=== PATIENT | male | born 1975 | race Caucasian/White ===

== ENCOUNTER 2024-09-12 10:57 | Emergency (ER) | payer BC, SELFPAY ==
[2024-09-12 11:32] VITALS: BP 163/109
--- NOTE | 2024-09-12 12:49 | ED.GENMED ---
History of Present Illness
General
Chief Complaint: Skin Surface Trauma
Source: patient
Exam Limitations: none
Time Seen by Provider: 09/12/24 12:37
Nursing documentation reviewed up to this point in time: agreed with
History of Present Illness
History of Present Illness:
49-year-old male with no chronic medical issues presents with a eng hematoma. He was working on a 2 x 4 struck him in the right eng. He says that it swelled up rather quickly and he developed a hematoma but he has minor pain only and is able to
bear weight. No other injuries. He was unsure whether it needs to be drained and so he came to the ER to be assessed.
Past History
Past History
ED Past Medical History: None
ED Past Surgical History: Orthopedic
Social History
Tobacco: Non-smoker
Personal:
Living: with family
Employment: Employed
Review of Systems
Review of Systems
All Other Systems: ROS reviewed and negative except as documented in HPI and ROS
Skin: Reports other
Phy Exam
Physical Exam
Physical Exam:
General: Well appearing and non-toxic
HEENT: protecting airway
Neck: appears supple
CV: No evidence of cyanosis
Resp: No accessory muscle use
Abd: Non-distended
Extremities: Minor right mid eng hematoma, no lacerations or abrasions, minimal localized tenderness
Neuro: Alert
Psych: Normal affect
Skin: Intact
Scores
Heart Failure Risk
Heart Failure Risk Score: Not Applicable
Heart Score for Chest Pain Patients
STEMI patient?: Not applicable
Withdrawal Assessment of Alcohol
Withdrawal Assessment Completed?: Not applicable
Course
Vital Signs
Initial and Last Documented VS:
Initial Vital Signs
Temp Pulse Resp BP Pulse Ox
36.8 C 63 18 163/109 96
09/12/24 11:32 09/12/24 11:32 09/12/24 11:32 09/12/24 11:32 09/12/24 11:32
Last Documented Vital Signs
Temp Pulse Resp BP Pulse Ox
36.8 C 63 18 163/109 96
09/12/24 11:32 09/12/24 11:32 09/12/24 11:32 09/12/24 11:32 09/12/24 11:32
MDM/Problems Addressed
Differential Diagnosis Includes:
Eng hematoma
MDM/Problems Addressed:
49-year-old male presents with minor eng hematoma after being hit with a 2 x 4. He is not on blood thinners. He is ambulatory without issue, minimal tenderness. No negation for x-ray emergently, very low suspicion for fracture. Advised KAET,
applied Sai wrap here. Stable for discharge.
*Pulse Oximetry
Patient hypoxic: no
*Critical Care Note
Total Time (30-74mins, 75-104mins- exclusive of procedures): Not Applicable
Data Reviewed
Source: patient
Further Testing Considered But Not Given:
Considered x-ray
ED Attending Note
-
Portions of this chart may have been created with voice recognition software.� Occasional wrong word or��sound alike� substitutions may have occurred due to the inherent limitations of voice recognition software.
Discharge Plan
Departure
Patient Disposition: Home (Routine Discharge)
Date of Disposition: 09/12/24
Time of Disposition: 12:48
Patient with high blood pressure during this ER visit?: Yes
Discharge Problem:
Hematoma of lower leg, Hypertension
Instructions: BLOOD PRESSURE, Hematoma, RICE Therapy
Referrals:
NONE,* [Family Provider] -
Activity Restrictions/Additional Instructions:
Thank you for visiting the Emergency Department at [facility].
1. Please schedule a follow up appointment as directed. Call first thing tomorrow morning to make an appointment.
2. If indicated, please take your medications as instructed and indicated on discharge paperwork.
3. If any of your symptoms do not improve, or persist, or become more severe within 6-12 hours, please return to the emergency department for further care.
4. Please return to the emergency department if you develop a headache, neck pain/stiffness, fever greater than 100.4F, chest pain, shortness of breath, persistent nausea, vomiting, slurred speech, difficulty walking, numbness/tingling, weakness,
signs of infection or any other symptoms that are worrisome to you.
Please call [phone] if you have any questions.
Interventions
Interventions:
*Risk Screen - Suicide Last Done: 09/12/24 11:32
*General Assessment Last Done: 09/12/24 11:32
ED-Skin Assessment Last Done: 09/12/24 12:18
Discharge Date and Time
Print Language: AFGHAN
== END 2024-09-12 13:00 | disposition home or self-care (01) ==
LOC: EMR 10:57
PROVIDERS: EMERGENCY PHYSICIAN Emergency Medicine
DX: S80.11XA Contusion of right lower leg, initial encounter (principal); X58.XXXA Exposure to other specified factors, initial encounter; I10 Essential (primary) hypertension
CPT/HCPCS: 99282

== ENCOUNTER → 2025-01-19 12:43 | Outpatient (REF) | payer BC, SELFPAY | LOC: RAD 12:43 | PROVIDERS: ATTENDING PHYSICIAN Registered Nurse; FAMILY PHYSICIAN Family Medicine | DX: I83.891 Varicose veins of right lower extremity with other complications (principal); M79.604 Pain in right leg | CPT/HCPCS: 93971 ==

== ENCOUNTER → 2025-05-08 06:36 | Outpatient (REF) | payer BC, SELFPAY | LOC: HWRAD 06:36 | PROVIDERS: ATTENDING PHYSICIAN Registered Nurse; FAMILY PHYSICIAN Family Medicine | DX: R79.89 Other specified abnormal findings of blood chemistry (principal); I82.890 Acute embolism and thrombosis of other specified veins | CPT/HCPCS: 76700; 93971 ==